=== PATIENT | male | born 1960 | race Caucasian/White ===

== ENCOUNTER → 2017-01-06 | Outpatient (CLI) | payer BC ==
[~2017-01-06] MED LIST: ASCO10003 PO; CHOL200010 PO; CIPR-255 PO; COEN10CA4 PO; GLC/500 PO; GLUC500C4 PO; LEVO125T72 PO; OMEG10007 PO; PRLSR20 PO; VITA1TAB7 PO
[2017-01-06 10:05] LABS: CHOLESTEROL/HDL RATIO 5.3; PROSTATE SPECIFIC ANTIGEN 0.726 ng/ml (0.000-4.000); THYROID STIMULATING HORMONE 0.656 uIu/ml (0.300-4.500)
[2017-01-06 10:17] LABS: ESTIMATED AVERAGE GLUCOSE 120 mg/dl; HA1C FLAG Normal (Normal)
== END | disposition home or self-care (01) ==
LOC: C.LAB1850 07:09
PROVIDERS: ATTEND Internal Medicine
DX: E03.9 Hypothyroidism, unspecified (principal); R73.03 Prediabetes; Z12.5 Encounter for screening for malignant neoplasm of prostate

== ENCOUNTER → 2017-08-16 | Outpatient (CLI) | payer BC ==
[2017-08-16 09:47] LABS: BASO % 0.3 %; BASO ABS # 0.03 K/uL (0-0.2); COMPLETE YES; EOS % 1.2 %; HEMATOCRIT 42.8 % (42-52); IG% 0.7 %; LYMPH % 30.1 %; LYMPH ABS # 2.74 K/uL (1.2-3.4); MEAN CELL VOLUME 90.5 fL (80-100); MEAN CORPUSCULAR HEMOGLOBIN 31.5 pg (25-34); MEAN CORPUSCULAR HGB CONC 34.8 g/dl (32-36); MEAN PLATELET VOLUME 10.6 fL (7.4-10.4); MONO % 8.9 %; NEUT % 58.8 %; PLATELET COUNT 243 K/uL (130-400); RED BLOOD COUNT 4.73 M/uL (4.7-6.1); WHITE BLOOD COUNT 9.09 K/uL (4.8-10.8)
[2017-08-16 10:04] LABS: BLOOD UREA NITROGEN 17 mg/dl (7-18); GLUCOSE 116 mg/dl (70-99)
[2017-08-16 10:05] LABS: ALT/SGPT 42 U/L (12-78); BUN/CREATININE RATIO 15.4 (10-20); CALCIUM 8.9 mg/dl (8.5-10.1); CARBON DIOXIDE 25 mmol/L (21-32); CHLORIDE 105 mmol/L (98-107); CHOLESTEROL 198 mg/dl (0-200); POTASSIUM 3.8 mmol/L (3.5-5.1); SODIUM 138 mmol/L (136-145); TRIGLYCERIDES 225 mg/dl (0-150); VERY LOW DENSITY LIPOPROT CALC 45 mg/dl
[2017-08-16 10:15] LABS: ALB/GLOB RATIO 1.1 (0.9-2); ALKALINE PHOSPHATASE 53 U/L (45-117); AST/SGOT 28 U/L (15-37); CHOLESTEROL/HDL RATIO 5.7; HDL CHOLESTEROL 35 mg/dl; LDL CHOLESTEROL CALCULATED 118 mg/dl
== END | disposition home or self-care (01) ==
LOC: C.LAB1850 07:12
PROVIDERS: ATTEND Internal Medicine
DX: E03.9 Hypothyroidism, unspecified (principal); R73.03 Prediabetes

== ENCOUNTER → 2018-06-27 | Outpatient (CLI) | payer BC, OTHER ==
[2018-06-27 10:19] LABS: BLOOD UREA NITROGEN 16 mg/dl (7-18); CALCIUM 9.1 mg/dl (8.5-10.1); CARBON DIOXIDE 25 mmol/L (21-32); CHOLESTEROL 222 mg/dl (0-200); CREATININE 1.06 mg/dl (0.60-1.40); GLUCOSE 124 mg/dl (70-99); LDL CHOLESTEROL CALCULATED 144 mg/dl; POTASSIUM 3.7 mmol/L (3.5-5.1); SODIUM 138 mmol/L (136-145)
== END | disposition home or self-care (01) ==
LOC: C.LAB1850 07:06
PROVIDERS: ATTEND Internal Medicine
DX: E03.9 Hypothyroidism, unspecified (principal); R73.03 Prediabetes; Z12.5 Encounter for screening for malignant neoplasm of prostate; E78.1 Pure hyperglyceridemia